=== PATIENT | female | born 1990 | race Caucasian/White ===

== ENCOUNTER 2020-03-18 12:57 | Emergency (ER) | payer MEDICAID ==
[~2020-03-18] VITALS: Ht 170.2 cm; Wt 90.1 kg
[2020-03-18 13:18] VITALS: BP 114/75
[2020-03-18] MEDS ORDERED: LIDOCAINE 1%-EPI 1:100K, 20ML ONE (13:54)
[2020-03-18] MEDS ORDERED: LIDOCAINE 1%-EPI 1:100K, 20ML SQ ONE (14:00)
== END 2020-03-18 14:43 | disposition home or self-care (01) ==
LOC: ED 13:38
DX: S81.811A Laceration without foreign body, right lower leg, initial encounter (principal); W31.89XA Contact with other specified machinery, initial encounter; Y93.89 Activity, other specified; Y92.099 Unspecified place in other non-institutional residence as the place of occurrence of the external cause; Y99.8 Other external cause status
CPT/HCPCS: 12002; 99282

== ENCOUNTER 2020-03-28 08:16 | Emergency (ER) | payer MEDICAID ==
[~2020-03-28] VITALS: Ht 170.2 cm; Wt 90.5 kg
[2020-03-28 08:20] VITALS: BP 128/72
== END 2020-03-28 09:15 | disposition home or self-care (01) ==
LOC: ED 09:07
DX: S81.811D Laceration without foreign body, right lower leg, subsequent encounter (principal); X58.XXXD Exposure to other specified factors, subsequent encounter
CPT/HCPCS: 99281